=== PATIENT | male | born 1965 | race Caucasian/White ===

== ENCOUNTER 2016-11-04 10:56 | Day surgery (SDC) | payer OTHER ==
[2016-11-04 11:30] VITALS: PULSE 82
[2016-11-04] MEDS ORDERED: LR 1,000 ML IV ONE (11:33)
--- NOTE | 2016-11-04 12:29 | PDANEPAE ---
ANE Past Medical History - Cardiovascular History Hx Hypertension: Yes Hx Arrhythmias: No Hx Chest Pain: No Hx Coronary Artery / Peripheral Vascular Disease: No Hx CHF / Valvular Disease: No Hx Palpitations: No - Pulmonary History Hx COPD: No Hx Asthma/Reactive Airway Disease: No Hx Recent Upper Respiratory Infection: No Hx Oxygen in Use at Home: No Hx Sleep Apnea: No Sleep Apnea Screening Result - Last Documented: Positive - Neurologic History Hx Cerebrovascular Accident: No Hx Seizures: No Hx Dementia: No - Endocrine History Hx Diabetes: No - Renal History Hx Renal Disorders: No - Liver History Hx Hepatic Disorders: No - Neurological & Psychiatric Hx Hx Neurological and Psychiatric Disorders: No - Cancer History Hx Cancer: No - Congenital Disorder History Hx Congenital Disorders: No - GI History Hx Gastrointestinal Disorders: No - Chronic Pain History Chronic Pain: No - Surgical History Prior Surgeries: tracheostomy ANE Review of Systems Review of Systems: - Exercise capacity METS (RN): 4 METS ANE Patient History - Allergies Allergies/Adverse Reactions: No Known Allergies Allergy (Unverified 11/01/16 11:39) - Home Medications Home Medications: Lisinopril-Hctz 10-12.5 mg Tab DAILY AT 10AM 11/01/16 [Last Taken Unknown] - NPO status NPO Since - Liquids (Date): 11/04/16 NPO Since - Liquids (Time): 09:30 NPO Since - Solids (Date): 11/02/16 NPO Since - Solids (Time): 18:00 - Smoking Hx Smoking Status: Never smoked - Family Anes Hx Family Hx Anesthesia Complications: none ANE Labs/Vital Signs - Vital Signs Blood Pressure: 111/82 Heart Rate: 82 Respiratory Rate: 16 O2 Sat (%): 93 Height: 175.26 cm Weight: 83.007 kg ANE Physical Exam - Airway Neck exam: FROM Mallampati Score: Class 1 Mouth exam: normal dental/mouth exam - Pulmonary Pulmonary: no respiratory distress, no rales or rhonchi, clear to auscultation - Cardiovascular Cardiovascular: regular rate and rhythym, no murmur, rub, or gallop - ASA Status ASA Status: II ANE Anesthesia Plan Anesthesia Plan: MAC
[2016-11-04] MEDS ORDERED: PROPOFOL/EMULSION 500 MG/50 ML BOTTLE IV ONE (12:33)
[2016-11-04] MEDS ORDERED: INDOMETHACIN 50 MG SUPP PR PRN (12:36)
--- NOTE | 2016-11-04 12:36 | PDGENHP ---
History & Physical Chief Complaint: hx of polyps History of Present Illness: 51 year old male with a history of adenomas presents for surveillance colonoscopy. Pertinent Past, Social, Family History: PMHx; htn. FaMHx: no CRC Relevant Physical Exam: HEENT: anicteric. CV: RRR +s1s2. Lungs: CTAB. Abd: soft, nt, + bs Cardiorespiratory Assessment: ASA 2
[2016-11-04] MEDS ORDERED: LR 500 ML IV PRN (12:38)
[2016-11-04] MEDS ORDERED: MEPERIDINE 25 MG/ML SYR IVP PRN (12:38)
[2016-11-04] MEDS ORDERED: DEXAMETHASONE 4 MG/ML VIAL IVP PRN (12:38)
[2016-11-04] MEDS ORDERED: NALOXONE HCL 0.4 MG/ML INJ IVP PRN (12:38)
[2016-11-04] MEDS ORDERED: ENALAPRILAT DIHYDRATE 1.25 MG/ML VIAL IVP PRN (12:38)
[2016-11-04] MEDS ORDERED: LABETALOL HCL 50 MG/10 ML SYR IVP PRN (12:38)
[2016-11-04] MEDS ORDERED: fentaNYL 100 MCG/2 ML INJ IVP PRN (12:38)
[2016-11-04] MEDS ORDERED: ONDANSETRON 4 MG/2 ML VIAL IVP PRN (12:38)
[2016-11-04] MEDS ORDERED: NS 500 ML IV SCH (12:45)
--- NOTE | 2016-11-04 13:04 | POSTOPPROG ---
Post Op Note Date of Operation: 11/04/16 Surgeon: Nahid Wilson Anesthesia: IV Sedation Pre-op Diagnosis: hx polyps Post-op Diagnosis: polyps Indication: hx polyps Procedure: colonoscopy with snare, bx Findings: polyps x 3 Inf/Abcess present in the surg proc area at time of surgery?: No EBL: Minimal Specimen(s): tc x 1 sigmoid and rectal
--- NOTE | 2016-11-04 13:08 | GIREPORT ---
Formerly [facility], 1928–1983 Surgical Services - Endoscopy Department Patient Name: Kelton Calloway Procedure Date: 11/04/2016 12:22 PM Patient Type: Outpatient Attending / NATAN Physician: Nahid Wilson MD Procedure: Colonoscopy Indications: High risk colon cancer surveillance: Personal history of colonic polyps Patient Profile: 51 year old male with a history of adenomas presents for surveillance colonoscopy. Providers: Nahid Wilson MD Medicines: Monitored Anesthesia Care Complications: No immediate complications. Estimated blood loss: Minimal. Findings: The perianal and digital rectal examinations were normal. Pertinent negatives include no palpable rectal lesions. Diverticula were found in the sigmoid colon. A 4 mm polyp was found in the transverse colon. The polyp was sessile. The polyp was removed with a cold snare. Resection and retrieval were complete. Two sessile polyps were found in the rectum and sigmoid colon. The polyps were 2 to 3 mm in size. These polyps were removed with a cold biopsy forceps. Resection and retrieval were complete. Estimated Blood Loss: Estimated blood loss was minimal. Post Op Diagnosis: - Diverticulosis in the sigmoid colon. - One 4 mm polyp in the transverse colon, removed with a cold snare. Resected and retrieved. - Two 2 to 3 mm polyps in the rectum and in the sigmoid colon, removed with a cold biopsy forceps. Resected and retrieved. Recommendation: - Discharge patient to home (with escort). - Resume previous diet. - Continue present medications. - Repeat colonoscopy in 3 - 5 years for surveillance based on pathology results (3 years if 3 adenoms, 5 years otherwise). - Use fiber, for example Citrucel, Fibercon, Konsyl or Metamucil. Attending Participation: I personally performed the entire procedure. Nahid Wilson MD Nahid Wilson MD 11/04/2016 1:07:48 PM Number of Addenda: 0 Note Initiated On: 11/04/2016 12:22 PM Total Procedure Duration Time 0 hours 17 minutes 48 seconds [email or web address]
[2016-11-04 13:14] VITALS: TEMP 97.5
--- NOTE | 2016-11-04 13:18 | POSTANESTH ---
Post Anesthetic Evaluation Cardiovascular Status: Normal, Stable, Similar to Pre-Op Cond Respiratory Status: Normal, Stable, Similar to Pre-op Cond. Level of Consciousness/Mental Status: Can Participate in Eval, Mildly Sleepy, Arousable Pain Control: Adequate, Prn Tx Ordered Nausea/Vomiting Control: Adequate, Prn Tx Ordered Complications Possibly Related to Anesthesia: None Noted
[2016-11-04 14:20] VITALS: BP 145/89; RESP 16; O2SAT 97
== END 2016-11-04 14:05 | disposition home or self-care (01) ==
LOC: FSGY 10:56
PROVIDERS: ATTEND Internal Medicine Gastroenterology
PROC: 0DBE8ZX Excision of Large Intestine, Via Natural or Artificial Opening Endoscopic, Diagnostic (ICD-10-PCS; principal; 2016-11-04 12:15)
PROC: 0DBP8ZX Excision of Rectum, Via Natural or Artificial Opening Endoscopic, Diagnostic (ICD-10-PCS; principal; 2016-11-04 12:15)
PROC: 0DBN8ZX Excision of Sigmoid Colon, Via Natural or Artificial Opening Endoscopic, Diagnostic (ICD-10-PCS; principal; 2016-11-04 12:15)
DX: K63.5 Polyp of colon (principal); K62.1 Rectal polyp; K57.32 Diverticulitis of large intestine without perforation or abscess without bleeding; I10 Essential (primary) hypertension
CPT/HCPCS: J2704